=== PATIENT | female | born 1980 ===

== ENCOUNTER → 2018-11-30 21:04 | Outpatient (REF) | payer OTHER, SELFPAY ==
[2018-11-30 21:37] LABS: HEMOLYSIS < 15 (0-50)
[2018-11-30 21:40] LABS: Add Manual Diff / Slide Review NO; Basophils Absolute Auto 0 /uL (0-100); Basophils Percent Auto 0.5 % (0-2); Eosinophils Absolute Auto 100 /uL (0-450); Eosinophils Percent Auto 1.3 % (2-4); Lymphocytes Absolute Auto 1800 /uL (1100-4500); Lymphocytes Percent Auto 20.5 % (25-40); Mean Corpuscular HGB Conc 33.5 % (30-36); Mean Corpuscular Hemoglobin 29.9 PG (26-34); Mean Corpuscular Volume 89.2 fL (80-100); Monocytes Absolute Auto 500 /uL (0-900); Monocytes Percent Auto 5.6 % (3-14); Neutrophils Absolute Auto 6300 /uL (1500-7000); Neutrophils Percent Auto 72.1 % (50-75); Platelet Count 199 X10^3/uL (150-400); Red Blood Cell Count 4.03 X10^6/uL (4.0-5.2); Red Cell Distribution Width 12.7 % (11.6-14.8); White Blood Cell Count 8.8 X10^3/uL (4.5-11.0)
[2018-11-30 21:42] LABS: Alanine Aminotransferase 26 IU/L (9-52); Albumin 4.4 g/dL (3.5-5.0); Albumin Globulin Ratio 1.6 (1.0-2.8); Alkaline Phosphatase 31 U/L (38-126); Aspartate Aminotransferase 17 IU/L (14-36); BUN Creatinine Ratio 22.5 (6-22); Bilirubin Total 0.4 mg/dL (0.2-1.3); Blood Urea Nitrogen 18 mg/dL (7-17); Calcium 9.4 mg/dL (8.4-10.2); Carbon Dioxide 26 mmol/L (22-32); Chloride 106 mmol/L (98-107); Estimated Glomerular Filt Rate > 60.0 mL/min (>60); Globulin 2.8 g/dL (1.7-4.1); Glucose 92 mg/dL (70-100); Potassium 3.8 mmol/L (3.4-5.1); Sodium 141 mmol/L (137-145); Total Protein 7.2 g/dL (6.3-8.2)
[2018-11-30 22:48] LABS: C-Reactive Protein Quant < 0.5 mg/dL (<1.0); Rheumatoid Factor < 8.6 IU/mL (<12.0)
[2018-12-03 15:27] LABS: HLA B27 NEGATIVE (Negative)
[2018-12-03 20:33] LABS: ANA Screen, IFA Negative (Negative)
[2018-12-04 10:57] LABS: CCP Antibody (IgG) < 16 Units (< 20)
== END ==
LOC: LAB 21:04
PROVIDERS: Visit Provider Naturopath
DX: M54.5 Low back pain (principal); Z13.89 Encounter for screening for other disorder; M25.551 Pain in right hip; M25.552 Pain in left hip
CPT/HCPCS: 36415; 80053; 83516; 85025; 86038; 86140; 86430; 86812